=== PATIENT | male | born 1965 | race Caucasian/White ===

== ENCOUNTER 2017-08-10 13:43 | Inpatient (IN) | payer OTHER ==
[~2017-08-10] VITALS: Ht 185.4 cm; Wt 84.6 kg
[2017-08-10] MEDS: DEXT 5%-NACL 0.9% 1000 ML INJ 1,000 ML IV SCH (17:05)
[2017-08-10] MEDS ORDERED: NURSING INFORMATION XX SCH (17:15)
[2017-08-10] MEDS ORDERED: POTASSIUM CHLOR 40 MEQ PREMIX 100 ML IV PRN ×2 (17:15)
[2017-08-10] MEDS ORDERED: INSULIN REGULAR (IV INFUSION) 100 UNITS in SODIUM CHLORIDE 0.9% INJ 99 ML IV PRN (17:15)
[2017-08-10] MEDS ORDERED: POTASSIUM CHLOR 20 MEQ PREMIX 100 ML IV PRN ×5 (17:15)
[2017-08-10] MEDS ORDERED: SODIUM PHOSPHATE INJ 15 MMOL in SODIUM CHLORIDE 0.9% INJ 100 ML IV PRN (17:15)
[2017-08-10] MEDS ORDERED: SODIUM BICARBONATE 8.4% SOLN 50 MEQ/50 ML VIAL IV PUSH PRN ×2 (17:15)
[2017-08-10] MEDS ORDERED: CHLORHEXIDINE GLUCONATE 2 % 1 PACK (2 CLOTHS) TOP PRN (17:15)
[2017-08-10] MEDS ORDERED: LISI10TA3 PO (17:27)
[2017-08-10] MEDS ORDERED: CARV6.252 PO (17:27)
[2017-08-10] MEDS ORDERED: FAMO20TA2 PO (17:27)
[2017-08-10] MEDS ORDERED: VITA1000 PO (17:27)
[2017-08-10] MEDS ORDERED: AMLO10TA2 PO (17:27)
[2017-08-10] MEDS ORDERED: NEPHTAB3 PO (17:27)
[2017-08-10] MEDS ORDERED: hydrALAZINE HCL 20 MG/ML VIAL IV PUSH PRN (18:00)
[2017-08-10] MEDS ORDERED: hydrALAZINE HCL 20 MG/ML VIAL ONE (18:07)
--- NOTE | 2017-08-10 18:47 | HHI.HP ---
HPI Service Critical Care Medicine Primary Care Physician [facility] Admission Diagnosis DKA, Hyperosmolar state Diagnosis: Chief Complaint: Nausea, vomiting Travel History International Travel<30 Days: No Contact w/Intl Traveler <30 Da: No Traveled to Known Affected Are: No History of Present Illness 52-year-old male with a medical history significant for type 1 diabetes mellitus on insulin pump for about 20 years who developed nausea vomiting about 2 weeks back with extremely poor p.o. intake. He usually uses insulin pump about 50 units a day which he continued to use. He was brought to the ER at [facility] in the morning of 08/10. On evaluation in the ER he was noted to have glucose levels in the 1400 range. He is on peritoneal dialysis for end-stage renal disease for the last 2 years. Patient was initially admitted to [facility] however in view of no availability of peritoneal dialysis he was transferred to [facility] after being accepted by critical care medicine service. Patient had been started on insulin drip at [facility] and received 2 L normal saline bolus. Of note his sodium was 113 however this is probably pseudohyponatremia from extreme hyperglycemia is corrected sodium is 145. I evaluated the patient following his arrival. He was resting in bed comfortably not in any acute distress. He was on an insulin drip at 8 units an hour. History is obtained by reviewing records and discussion with patient as well as his family. He denies any chest pain. He does have chronic diarrhea. Denies any fevers chills or rash. He is legally blind. Review of Systems ROS per HPI Past Family Social History Allergies: Coded Allergies: No Known Allergies (Unverified , 08/10/17) Past Medical History Diabetes mellitus type 1 on insulin pump, hypertension, hyperlipidemia, end- stage renal disease on peritoneal dialysis Past Surgical History To amputation, skin grafts on bilateral feet. Reported Medications Amlodipine 10 mg p.o. nightly, Coreg 6.25 mg p.o. twice daily, vitamin D3 1000 units p.o. daily, Pepcid 20 mg p.o. daily, Nephro-Samuel tablet p.o. daily, insulin pump, lisinopril 10 mg p.o. twice daily, Renvela 3200 mg p.o. before meals Family History Noncontributory at this time Social History No history of alcohol abuse on any other drug abuse. Physical Exam Physical Exam HEENT/Neuro: No pallor or icterus, tongue moist, Awake alert oriented 3, nonfocal grossly, moving all 4 extremities Neck: No JVD Chest/pulmonary: CTA bilaterally Cardiovascular: S1-S2 regular no gallop or murmur GI/abdomen: Soft, nontender, bowel sounds present. PD catheter in place Extremities: Warm bilaterally, no edema Laboratory White count 9.1, hemoglobin 10, hematocrit 29.6, platelets 262, sodium 113, potassium 3.3, chloride 71, bicarb 18, BUN 44, creatinine 11.35, ABG pH 7.33, PCO2 36.1, PO2 91. Lactate 1.57 AST 23, ALT 17, alk phos 116, total protein 5.9, albumin 3.3, lipase 21, calcium 8.3, osmolality 298, bilirubin 0.3 Imaging Chest x-ray done at outside hospital reported as left basilar atelectasis with mild elevation of left hemidiaphragm. Caprini VTE Risk Assessment Caprini VTE Risk Assessment: Mod/High Risk (score >= 2) Caprini Risk Assessment Model Point Value = 1 Point Value = 2 Point Value = 3 Point Value = 5 Age 41-60 Minor surgery BMI > 25 kg/m2 Swollen legs Varicose veins or History of unexplained or recurrent spontaneous Oral contraceptives or hormone replacement Sepsis (< 1 month) Serious lung disease, including pneumonia (< 1 month) Abnormal pulmonary function Acute myocardial infarction Congestive heart failure (< 1 month) History of inflammatory bowel disease Medical patient at bed rest Age 61-74 Arthroscopic surgery Major open surgery (> 45 min) Laparoscopic surgery (> 45 min) Malignancy Confined to bed (> 72 hours) Immobilizing plaster cast Central venous access Age >= 75 History of VTE Family history of VTE Factor V Leiden Prothrombin [id number] Lupus anticoagulant Anticardiolipin antibodies Elevated serum homocysteine Heparin-induced thrombocytopenia Other congenital or acquired thrombophilia Stroke (< 1 month) Elective arthroplasty Hip, pelvis, or leg fracture Acute spinal cord injury (< 1 month) Prophylaxis Regimen Total Risk Factor Score Risk Level Prophylaxis Regimen 0-1 Low Early ambulation 2 Moderate Order ONE of the following: *Sequential Compression Device (SCD) *Heparin 5000 units SQ BID 3-4 Higher Order ONE of the following medications: *Heparin 5000 units SQ TID *Enoxaparin/Lovenox 40 mg SQ daily (WT < 150 kg, CrCl > 30 mL/min) *Enoxaparin/Lovenox 30 mg SQ daily (WT < 150 kg, CrCl > 10-29 mL/min) *Enoxaparin/Lovenox 30 mg SQ BID (WT < 150 kg, CrCl > 30 mL/min) AND/OR *Sequential Compression Device (SCD) 5 or more Highest Order ONE of the following medications: *Heparin 5000 units SQ TID (Preferred with Epidurals) *Enoxaparin/Lovenox 40 mg SQ daily (WT < 150 kg, CrCl > 30 mL/min) *Enoxaparin/Lovenox 30 mg SQ daily (WT < 150 kg, CrCl > 10-29 mL/min) *Enoxaparin/Lovenox 30 mg SQ BID (WT < 150 kg, CrCl > 30 mL/min) AND *Sequential Compression Device (SCD) Assessment and Plan Assessment and Plan 52-year-old male with Diabetic ketoacidosis Hyperosmolar state Nausea vomiting ESRD on peritoneal dialysis Dehydration Plan Neuro: Follow neuro status. Pain medications as needed Cardiovascular: Received 2 L normal saline bolus at [facility]. In view of end-stage renal disease on peritoneal dialysis will hold off on maintenance IV fluids currently. Patient is running hypotensive and will resume p.o. antihypertensives and use hydralazine as needed IV. Pulmonary: Supplemental O2 as needed, bronchodilators as needed GI/liver: Zofran as needed for nausea vomiting. Will add Protonix for suspected gastritis Renal/: Consult nephrology and discussed case with Dr. Alamo. Arranging peritoneal dialysis. Monitor and replete electrolytes, follow BUN/creatinine. ID: No indication for antibiotics at this time. Heme: Follow CBC. Endocrine insulin drip per DKA protocol. Prophylaxis SCDs/heparin for DVT prophylaxis, PPI for GI prophylaxis. Condition critical Time spent on critical care excluding procedures 45 minutes. Extensively discussed current clinical status and plan of care with patient as well as his family and they voiced understanding and was agreeable with plan of care. Adan Cuevas MD Aug 10, 2017 18:47
[2017-08-10 18:48] LABS: ALBUMIN 2.6 GM/DL (3.4-5.0); AST (GOT) 25 U/L (15-37); BICARBONATE 20.4 MEQ/L (21.0-32.0); BLOOD UREA NITROGEN 44 MG/DL (7-18); CALCIUM 8.2 MG/DL (8.5-10.1); CHLORIDE 82 MEQ/L (98-107); GLOMERULAR FILTRATION RATE 4 ML/MIN (>89); MAGNESIUM 2.2 MG/DL (1.5-2.5)
[2017-08-10 18:50] LABS: ALT (GPT) 22 U/L (12-78); PHOSPHORUS 3.8 MG/DL (2.5-4.9); TOTAL BILIRUBIN ADULT 0.3 MG/DL (0.2-1.0); TOTAL PROTEIN 5.5 GM/DL (6.4-8.2)
[2017-08-10 18:53] LABS: CREATININE 12.75 MG/DL (0.60-1.30); GLUCOSE,RANDOM 926 MG/DL (74-106); SODIUM (NA) 120 MEQ/L (136-145)
[2017-08-10] MEDS: INSULIN REGULAR (IV INFUSION) 100 UNITS in SODIUM CHLORIDE 0.9% INJ 99 ML IV PRN ×2 (18:54→20:26)
[2017-08-10 18:57] VITALS: PULSE 77
[2017-08-10 19:05] LABS: ALKALINE PHOSPHATASE 105 U/L (45-117)
[2017-08-10 20:00] VITALS: PULSE 75
[2017-08-10] MEDS ORDERED: PILL SPLITTER OTHER PRN (20:00)
[2017-08-10] MEDS: PANTOPRAZOLE SODIUM 40 MG VIAL IV PUSH SCH (20:24)
[2017-08-10] MEDS: LISINOPRIL 10 MG TAB PO SCH (20:25)
[2017-08-10] MEDS: SODIUM CHLOR 0.9% 1000 ML INJ 1,000 ML IV SCH (20:25)
[2017-08-10] MEDS: CARVEDILOL 6.25 MG TAB PO SCH (20:25)
[2017-08-10] MEDS: PROMETHAZINE HCL 25 MG TAB PO PRN (20:25)
[2017-08-10] MEDS: POTASSIUM CHLOR 20 MEQ PREMIX 100 ML IV PRN (21:28)
[2017-08-10 22:00] VITALS: PULSE 63
[2017-08-10 22:32] LABS: BICARBONATE 22.6 MEQ/L (21.0-32.0); CALCIUM 7.7 MG/DL (8.5-10.1); MAGNESIUM 2.1 MG/DL (1.5-2.5); PHOSPHORUS 3.7 MG/DL (2.5-4.9)
[2017-08-10 22:34] LABS: CREATININE 12.33 MG/DL (0.60-1.30)
[2017-08-11] VITALS (14 sets, daily range): BP systolic 150; BP diastolic 85; PULSE 64–121; RESP 17; TEMP 98; O2SAT 99
[2017-08-11] MEDS: POTASSIUM CHLOR 20 MEQ PREMIX 100 ML IV PRN ×3 (00:59→05:43)
[2017-08-11] MEDS ORDERED: SODIUM CHLOR 0.9% 1000 ML INJ 1,000 ML IV ONE (03:30)
[2017-08-11] MEDS: CHLORHEXIDINE GLUCONATE 2 % 1 PACK (2 CLOTHS) TOP SCH (04:00)
[2017-08-11] MEDS: PROMETHAZINE HCL 25 MG TAB PO PRN (04:33)
[2017-08-11] MEDS: INSULIN REGULAR (IV INFUSION) 100 UNITS in SODIUM CHLORIDE 0.9% INJ 99 ML IV PRN (04:34)
[2017-08-11] MEDS: METOPROLOL TARTRATE 5 MG/5 ML VIAL IV PUSH PRN ×3 (04:50→06:44)
[2017-08-11 04:58] LABS: BICARBONATE 23.3 MEQ/L (21.0-32.0); CALCIUM 7.8 MG/DL (8.5-10.1)
[2017-08-11 05:05] LABS: CREATININE 11.91 MG/DL (0.60-1.30)
[2017-08-11] MEDS: POTASSIUM CHLOR 10 MEQ PREMIX 100 ML IV SCH ×6 (05:45→18:04)
[2017-08-11] MEDS ORDERED: POTASSIUM CHLORIDE 10 MEQ CONTROLLED RELEASE TAB PO ONE (05:45)
[2017-08-11] MEDS: DEXT 5%-NACL 0.9% 1000 ML INJ 1,000 ML IV SCH (06:31)
[2017-08-11] MEDS ORDERED: DC previous DKA orders (HMC 1917) ONE (07:45)
[2017-08-11] MEDS ORDERED: DEXTROSE 50% IN WATER 50 ML VIAL(D50) IV PUSH PRN (07:45)
[2017-08-11] MEDS ORDERED: DC Insulin drip 2 hrs post basal insulin dose ONE (07:45)
[2017-08-11] MEDS ORDERED: GLUCAGON 1 MG/ML VIAL IM/SQ PRN (07:45)
[2017-08-11] MEDS ORDERED: DEXTROSE 50% IN WATER 50 ML VIAL(D50) IV PRN (07:45)
[2017-08-11] MEDS ORDERED: GLUCAGON 1 MG/ML VIAL OTHER PRN (07:45)
[2017-08-11] MEDS: INSULIN ASPART SUPPLEMENTAL SCALE SQ SCH ×4 (08:00→22:26)
[2017-08-11] MEDS: LISINOPRIL 10 MG TAB PO SCH ×2 (08:00→22:19)
[2017-08-11] MEDS: CARVEDILOL 6.25 MG TAB PO SCH ×2 (08:01→22:19)
[2017-08-11] MEDS: INSULIN DETEMIR 100 UNITS/ML VIAL SQ SCH ×2 (08:01→22:26)
[2017-08-11] MEDS: VITAMIN B CMPLX/VITC/FOLIC AC CAP PO SCH (08:01)
[2017-08-11] MEDS: CHOLECALCIFEROL (VIT D3) 1000 UNIT TAB PO SCH (08:01)
[2017-08-11] MEDS: ONDANSETRON ODT 4 MG TAB PO PRN ×2 (09:51→13:03)
[2017-08-11] MEDS ORDERED: SODIUM CHLORIDE 0.9% FLUSH 10 ML FLUSH IV FLUSH PRN (10:45)
[2017-08-11] MEDS ORDERED: HEPARIN SODIUM - IV 10,000 UNITS/10 ML VIAL XX PRN (10:45)
--- NOTE | 2017-08-11 10:56 | PD.CONS ---
[facility] Service Nephrology Consult Requested By Reason for Consult ESRD Primary Care Physician [facility] History of Present Illness This is a 52 year old with history of type 1 DM, ESRD who has been transferred from [facility] for management of DKA. He is on PD. Patient has received insulin drip which continues. He was also on IVF at 200 ml/hour, I have reduced it to 50 ml/hour. He developed nausea and vomiting yesterday and went to local hospital. Has been on dialysis for the past 2 years. He has diabetic retinopathy and neuropathy. Review of Systems Constitutional: COMPLAINS OF: Fatigue, Weight loss Gastrointestinal: COMPLAINS OF: Nausea, Vomiting, DENIES: Abdominal pain, Black stools, Bloody stools, Difficulty Swallowing Musculoskeletal: DENIES: Muscle aches Neurologic: DENIES: Headache Past Family Social History Allergies: Coded Allergies: No Known Allergies (Unverified , 08/10/17) Past Medical History ESRD Hyperlipidemia Anemia DM type 1 Diabetic retinopathy Toe amputation. PD catheter placement. Past Surgical History Toe amputation PD catheter placement. Active Ordered Medications Current Medications Medications (Trade) Dose Ordered Sig/Marcus Route Start Time Stop Time Status [place] [place] [facility] [place] 1 [id number] XX 08/10/17 17:15 08/10/17 17:15 (Chlorhexidine 2% Cloth) 3 pack Taper DAILY@04 TOP 08/11/17 04:00 08/07/18 03:59 (Chlorhexidine 2% Cloth) 3 pack UNSCH PRN TOP 08/10/17 17:15 Insulin Human Regular 100 units/ Sodium Chloride 100 ml @ 8.25 mls/hr TITRATE PRN IV 08/10/17 17:45 08/11/17 11:00 08/11/17 04:34 (Norvasc) 10 mg DAILY PO 08/11/17 09:00 08/11/17 08:01 (Coreg) 6.25 mg BID PO 08/10/17 21:00 08/11/17 08:01 (Vitamin D3) 1,000 units DAILY PO 08/11/17 09:00 08/11/17 08:01 (Prinivil) 10 mg BID PO 08/10/17 21:00 08/11/17 08:00 (Nephrocaps) 1 cap DAILY PO 08/11/17 09:00 08/11/17 08:01 (Apresoline Inj) 10 mg Q2HR PRN IV PUSH 08/10/17 18:00 (Protonix Inj) 40 mg Q24H IV PUSH 08/10/17 19:00 08/10/17 20:24 (Phenergan) 12.5 mg Q6H PRN PO 08/10/17 20:00 08/11/17 04:33 (Pill Splitter) 1 ea UNSCH PRN OTHER 08/10/17 20:00 Sodium Chloride 1,000 ml @ 42 mls/hr [id number] IV 08/10/17 20:15 08/10/17 20:25 (Lopressor Inj) 5 mg Q5M PRN IV PUSH 08/11/17 04:45 08/11/17 06:44 (Levemir Inj) 10 units Q12HR SQ 08/11/17 09:00 08/11/17 08:01 (D50w (Vial) Inj) 50 ml UNSCH PRN IV PUSH 08/11/17 07:45 (Glucagon Inj) 1 mg UNSCH PRN OTHER 08/11/17 07:45 (NovoLOG SUPPLEMENTAL SCALE) 1 ACHS AND 3AM SQ 08/11/17 08:00 (Zofran Odt) 4 mg Q6H PRN PO 08/11/17 08:00 08/11/17 09:51 Potassium Chloride 100 ml @ 50 mls/hr Q2H IV 08/11/17 14:30 08/11/17 18:29 Potassium Chloride 100 ml @ 100 mls/hr Q1H IV 08/11/17 09:30 08/11/17 14:29 Family History non contributory, reviewed. Social History Lives with his mother. No Tobacco, ETOH or recreational drugs. Physical Exam Vital Signs Vital Signs Date Time Temp Pulse Resp B/P (MAP) Pulse Ox O2 Delivery O2 Flow Rate FiO2 08/11/17 06:00 118 08/11/17 04:00 121 08/11/17 02:00 67 08/11/17 00:00 65 08/10/17 22:00 63 08/10/17 20:00 75 08/10/17 18:57 77 Physical Exam GENERAL: chronically ill appearing, frail, complains of nausea SKIN: Warm and dry. HEAD: Normocephalic. EYES: No scleral icterus. No injection or drainage. NECK: Supple, trachea midline. No JVD or lymphadenopathy. CARDIOVASCULAR: Regular rate and rhythm without murmurs, gallops, or rubs. RESPIRATORY: Breath sounds equal bilaterally. No accessory muscle use. GASTROINTESTINAL: Abdomen soft, non-tender, nondistended. PD catheter is in place. MUSCULOSKELETAL: No cyanosis, or edema. BACK: Nontender without obvious deformity. No CVA tenderness. Laboratory Laboratory Tests Test 08/10/17 18:20 08/10/17 20:10 08/10/17 21:41 08/10/17 22:49 Blood Urea Nitrogen 44 42 Creatinine 12.75 12.33 Random Glucose 926 825 724 623 Total Protein 5.5 Albumin 2.6 Calcium Level 8.2 7.7 Phosphorus Level 3.8 3.7 Magnesium Level 2.2 2.1 Alkaline Phosphatase 105 Aspartate Amino Transf (AST/SGOT) 25 Alanine Aminotransferase (ALT/SGPT) 22 Total Bilirubin 0.3 Sodium Level 120 126 Potassium Level 2.9 2.6 Chloride Level 82 85 Carbon Dioxide Level 20.4 22.6 Anion Gap 18 18 Estimat Glomerular Filtration Rate 4 4 Test 08/11/17 04:04 08/11/17 10:18 Blood Urea Nitrogen 41 Creatinine 11.91 Random Glucose 251 Calcium Level 7.8 Phosphorus Level 4.0 Magnesium Level 2.0 Sodium Level 131 Potassium Level 2.7 Chloride Level 93 Carbon Dioxide Level 23.3 Anion Gap 15 Estimat Glomerular Filtration Rate 5 Result Diagram: 08/11/17 0404 Assessment and Plan Problem List: (1) End stage renal disease ICD Codes: N18.6 - End stage renal disease Plan: We will continue PD: last night he had 4 cycles of 2liter exchanges, using 1.5% dextrose PD solution. UF was about 890 ml. He will have 5 exchanges today, total duration 10 hours. He also has a last fill , and we will skip last fill for the time being. Monitor fluid and electrolytes. Reduce IVF to 50 ml/hour, discontinue once he starts eating. Avoid Gadolinium. Obtain CBC: not done. Epogen if necessary. (2) Hyperglycemia ICD Codes: R73.9 - Hyperglycemia, unspecified Plan: Possible DKA On insulin drip. Hyperglycemia has improved. He usually uses an insulin pump, there is a chance that it malfunctioned. Transition to SC insulin per protocol. (3) Hyponatremia ICD Codes: E87.1 - Hypo-osmolality and hyponatremia Plan: patient has pseudohyponatremia, but will continue to monitor. Hyponatremia not uncommon in PD patients. (4) Hypokalemia ICD Codes: E87.6 - Hypokalemia Plan: Replace as needed, replacement has been ordered. Assessment and Plan Thanks for the consult. Yovanny Padgett MD Aug 11, 2017 10:56
[2017-08-11 11:05] LABS: BICARBONATE 21.7 MEQ/L (21.0-32.0); CALCIUM 7.6 MG/DL (8.5-10.1); PHOSPHORUS 3.6 MG/DL (2.5-4.9)
[2017-08-11 11:23] LABS: CREATININE 11.96 MG/DL (0.60-1.30)
--- NOTE | 2017-08-11 12:03 | HHI.PR ---
Subjective Remarks Pt seen and examined. Reports feeling a little better. Continues to have some nausea and dry heaves but tolerated breakfast. Denies CP, SOB, diarrhea. Reports he has had current insulin pump for 3 years and has been on a pump total of 25 years. Objective Vital Signs Date Time Temp Pulse Resp B/P (MAP) Pulse Ox O2 Delivery O2 Flow Rate FiO2 08/11/17 06:00 118 08/11/17 04:00 121 08/11/17 02:00 67 08/11/17 00:00 65 08/10/17 22:00 63 08/10/17 20:00 75 08/10/17 18:57 77 I/O 08/10/17 08/10/17 08/10/17 08/11/17 08/11/17 08/11/17 07:00 15:00 23:00 07:00 15:00 23:00 Intake Total 100 ml 2874 ml 450 ml Output Total 864 ml Balance 100 ml 2874 ml -414 ml Intake Oral 0 ml IV Total 100 ml 2874 ml 450 ml Output Peritoneal Fluid 864 ml # Voids 0 0 # Bowel Movements 0 0 Result Diagram: 08/11/17 1018 Objective Remarks GENERAL: WN, WD male resting in bed in [facility]. SKIN: Warm and dry. Pale. HEENT: AT/NC. Pupils equal and round. MMM. NECK: Supple no tender LAD or JVD. HEART: RRR no m/r/g. LUNGS: CTAB without wheezes or crackles. ABDOMEN: +BS, soft, NT, ND. EXTREMITIES: No LE edema. 2+ pedal pulses. NEURO: Awake and alert. Blind. PSYCH: Appropriate mood and affect. A/P Problem List: (1) Diabetic keto-acidosis ICD Code: E13.10 - Other specified diabetes mellitus with ketoacidosis without coma (2) End stage renal disease ICD Code: N18.6 - End stage renal disease (3) Hypokalemia ICD Code: E87.6 - Hypokalemia Assessment and Plan 52 YOWM with history of ESRD on peritoneal dialysis, type 1 DM, HTN, and HLD admitted 08/10 from [facility] with DKA. He was initially admitted to the virtual recruiter service but care has been transitioned to the hospitalist service. 1. DKA - Initial blood glucose 926 with potassium 2.9, AG 18, and sodium 120 (largely pseudohyponatremia from severe hyperglycemia) - Beta hydroxybutyrate not done - Initially on insulin drip and has since transitioned to subcutaneous insulin and started on a diet - Levemir 10 units BID - Potassium replacement per protocol - Holding off on IV fluids given ESRD - Check A1c - Consult case management to see if pump can be assessed for malfunction - Antiemetics 2. ESRD on PD - Nephrology consulted to arrange PD - Monitor renal function - Avoid nephrotoxic agents 3. HTN - Continue home amlodipine and carvedilol 4. Type 1 DM complicated by retinopathy and neuropathy - See plans above GI prophylaxis: PPI DVT prophylaxis: Heparin Lola Alcocer MD Aug 11, 2017 12:03
[2017-08-11 12:22] LABS: AUTOMATED NEUTROPHIL # 9.6 TH/MM3 (1.8-7.7); BASOPHIL % 0.3 % (0.0-2.0); EOSINOPHIL # 0.2 TH/MM3 (0-0.4); EOSINOPHIL % 1.4 % (0.0-4.0); HEMATOCRIT 29.5 % (39.0-51.0); HEMOGLOBIN 10.3 GM/DL (13.0-17.0); MEAN CELL VOLUME 85.4 FL (80.0-100.0); MEAN CORPUSCULAR HEMOGLOBIN 29.9 PG (27.0-34.0); MONO % 4.7 % (0.0-8.0); MONOCYTE # 0.5 TH/MM3 (0-0.9); NEUT % 84.6 % (16.0-70.0); PLATELET COUNT 366 TH/MM3 (150-450); RED BLOOD COUNT 3.46 MIL/MM3 (4.50-5.90); RED CELL DISTRIBUTION WIDTH 14.9 % (11.6-17.2); WHITE BLOOD COUNT 11.4 TH/MM3 (4.0-11.0)
[2017-08-11] MEDS: POTASSIUM CHLOR 20 MEQ PREMIX 100 ML IV SCH (14:30)
[2017-08-11 18:00] LABS: BICARBONATE 21.3 MEQ/L (21.0-32.0); CALCIUM 7.8 MG/DL (8.5-10.1)
[2017-08-11 18:01] LABS: PHOSPHORUS 3.3 MG/DL (2.5-4.9)
[2017-08-11 18:08] LABS: CREATININE 12.16 MG/DL (0.60-1.30)
[2017-08-11] MEDS ORDERED: POTASSIUM CHLORIDE 25 MEQ EFFERVESCENT TAB PO ONE (18:45)
--- NOTE | 2017-08-11 20:40 | RADRPT ---
EXAM DATE: 08/11/2017 8:37 PM EDT AGE/SEX: 52 years / Male INDICATIONS: Shortness of breath. CLINICAL DATA: This is the patient's initial encounter. Patient reports that signs and symptoms have been present for 1 day and indicates a pain score of 0/10. MEDICAL/SURGICAL HISTORY: Hypertension. Gastroesophageal reflux disease. Diabetes mellitus ty pe II. None. COMPARISON: No prior [place] exams available for comparison. FINDINGS: Bibasilar atelectasis and/or infiltrates are noted. The heart is normal. The pulmonary vascular patte rn is normal. There is elevation of the left hemidiaphragm. CONCLUSION: 1. Bibasilar atelectasis and/or infiltrates. 2. Elevation of the left hemidiaphragm. Electronically signed by: Kobi Staton MD 08/11/2017 8:39 PM EDT
[2017-08-11] MEDS: PANTOPRAZOLE SODIUM 40 MG VIAL IV PUSH SCH (22:30)
[2017-08-11] MEDS: SODIUM CHLOR 0.9% 1000 ML INJ 1,000 ML IV SCH (22:32)
[2017-08-12 00:20] VITALS: BP 139/80; PULSE 60; RESP 19; TEMP 97; O2SAT 100
[2017-08-12] MEDS: INSULIN ASPART SUPPLEMENTAL SCALE SQ SCH ×5 (03:34→21:00)
[2017-08-12] MEDS: POTASSIUM CHLOR 20 MEQ PREMIX 100 ML IV SCH (04:18)
[2017-08-12] MEDS: POTASSIUM CHLOR 10 MEQ PREMIX 100 ML IV SCH ×3 (04:18→04:19)
[2017-08-12] MEDS: CHLORHEXIDINE GLUCONATE 2 % 1 PACK (2 CLOTHS) TOP SCH ×2 (04:19→21:32)
[2017-08-12 05:45] VITALS: BP 129/69; PULSE 64; RESP 19; TEMP 98; O2SAT 100
[2017-08-12 08:00] VITALS: BP 157/85; PULSE 77; RESP 16; TEMP 98.5; O2SAT 98
[2017-08-12 08:13] LABS: AUTOMATED NEUTROPHIL # 6.5 TH/MM3 (1.8-7.7); BASOPHIL % 0.4 % (0.0-2.0); EOSINOPHIL # 0.2 TH/MM3 (0-0.4); EOSINOPHIL % 2.2 % (0.0-4.0); HEMATOCRIT 29.5 % (39.0-51.0); HEMOGLOBIN 10.4 GM/DL (13.0-17.0); LYMPH % 11.6 % (9.0-44.0); MEAN CELL VOLUME 87.4 FL (80.0-100.0); MEAN CORPUSCULAR HEMOGLOBIN 30.9 PG (27.0-34.0); MEAN CORPUSCULAR HGB CONC 35.4 % (32.0-36.0); MONO % 7.8 % (0.0-8.0); MONOCYTE # 0.7 TH/MM3 (0-0.9); PLATELET COUNT 315 TH/MM3 (150-450); RED BLOOD COUNT 3.38 MIL/MM3 (4.50-5.90); RED CELL DISTRIBUTION WIDTH 14.9 % (11.6-17.2); WHITE BLOOD COUNT 8.4 TH/MM3 (4.0-11.0)
[2017-08-12 08:36] LABS: BICARBONATE 22.3 MEQ/L (21.0-32.0); CALCIUM 7.7 MG/DL (8.5-10.1); MAGNESIUM 1.9 MG/DL (1.5-2.5)
[2017-08-12 08:47] LABS: CREATININE 12.29 MG/DL (0.60-1.30)
[2017-08-12] MEDS: VITAMIN B CMPLX/VITC/FOLIC AC CAP PO SCH (09:00)
[2017-08-12] MEDS ORDERED: POTASSIUM CHLORIDE 10 MEQ CONTROLLED RELEASE TAB PO ONE ×2 (09:00→14:30)
[2017-08-12] MEDS ORDERED: POTASSIUM CHLORIDE 20 MEQ CONTROLLED RELEASE TAB PO ONE (09:00)
[2017-08-12] MEDS: LISINOPRIL 10 MG TAB PO SCH ×2 (09:52→21:33)
[2017-08-12] MEDS: CARVEDILOL 6.25 MG TAB PO SCH ×2 (09:53→21:33)
[2017-08-12] MEDS: CHOLECALCIFEROL (VIT D3) 1000 UNIT TAB PO SCH (09:53)
[2017-08-12] MEDS: INSULIN DETEMIR 100 UNITS/ML VIAL SQ SCH ×2 (09:56→21:34)
[2017-08-12 10:20] LABS: HEMOGLOBIN A1C 12.2 % (4.3-6.0)
--- NOTE | 2017-08-12 10:23 | HHI.NPPN ---
Subjective Interval History continues to complain of nausea. Oral intake is marginal, but was able to have some breakfast this morning. Review of Systems General Constitutional: Fatigue Gastrointestinal Gastrointestinal: Nausea & Vomiting Objective Data Data 08/12/17 08/13/17 19:00 07:00 Output Total 1383 ml Balance -1383 ml Peritoneal Fluid 1383 ml Vital Signs Date Time Temp Pulse Resp B/P (MAP) Pulse Ox O2 Delivery O2 Flow Rate FiO2 08/12/17 08:00 98.5 77 16 157/85 (109) 98 08/12/17 05:45 98.0 64 19 129/69 (89) 100 08/12/17 00:20 97.0 60 19 139/80 (99) 100 08/11/17 21:00 98.0 77 17 150/85 (106) 99 08/11/17 18:00 71 08/11/17 17:00 68 08/11/17 16:00 75 08/11/17 15:00 67 08/11/17 14:00 77 08/11/17 13:00 69 08/11/17 12:00 64 -: 08/12/17 0710 08/12/17 0710 Physical Exam General Appearance: Well Developed, Malnourished Eyes Eye Exam: Pupils Equal, Pupils Reactive Throat Throat Exam: Oral Mucosa [place] & Moist Neck Neck Exam: Neck Supple Pulmonary Resp Exam: Clear Bilaterally, Breath Sounds Equal Cardiology CV Exam: Regular, Normal Sinus Rhythm Gastrointestinal/Abdomen GI Exam: Soft, Non-Tender, Bowel Sounds Present GI Remarks PD catheter is in place. Extremeties Extremities Exam: No Edema Neurologic Neuro Exam: Alert, Awake, Oriented, Speech Clear, Moving All Extremities Assessment/Plan Problem List: (1) End stage renal disease ICD Codes: N18.6 - End stage renal disease Plan: We will continue PD. Monitor fluid and electrolytes. Discontinue IVF. Avoid Gadolinium. One dose of Epogen today: has anemia of CKD. (2) Hyperglycemia ICD Codes: R73.9 - Hyperglycemia, unspecified Plan: Hyperglycemia has improved. Off of insulin drip. Continue insulin coverage. He used insulin pump at home. His mother may bring the pump from home. He is from [facility]. (3) Hyponatremia ICD Codes: E87.1 - Hypo-osmolality and hyponatremia Plan: patient has pseudohyponatremia, but will continue to monitor. Hyponatremia not uncommon in PD patients. (4) Hypokalemia ICD Codes: E87.6 - Hypokalemia Plan: Replace as needed, replacement has been ordered. Yovanny Padgett MD Aug 12, 2017 10:23
[2017-08-12] MEDS: SODIUM CHLOR 0.9% 1000 ML INJ 1,000 ML IV SCH ×2 (11:30→22:41)
--- NOTE | 2017-08-12 11:35 | HHI.PR ---
Subjective Remarks Nausea is present today. Blood sugars are better controlled. Patient has poor p.o. intake thus far. Potassium levels are low. Objective Vital Signs Date Time Temp Pulse Resp B/P (MAP) Pulse Ox O2 Delivery O2 Flow Rate FiO2 08/12/17 08:00 98.5 77 16 157/85 (109) 98 08/12/17 05:45 98.0 64 19 129/69 (89) 100 08/12/17 00:20 97.0 60 19 139/80 (99) 100 08/11/17 21:00 98.0 77 17 150/85 (106) 99 08/11/17 18:00 71 08/11/17 17:00 68 08/11/17 16:00 75 08/11/17 15:00 67 08/11/17 14:00 77 08/11/17 13:00 69 08/11/17 12:00 64 I/O 08/11/17 08/11/17 08/11/17 08/12/17 08/12/17 08/12/17 06:59 14:59 22:59 06:59 14:59 22:59 Intake Total 2974 ml 550 ml 100 ml 300 ml Output Total 864 ml 0 ml 0 ml 1383 ml Balance 2974 ml -314 ml 100 ml 300 ml -1383 ml Intake Oral 100 ml 300 ml IV Total 2974 ml 550 ml Output Urine Total 0 ml 0 ml Peritoneal Fluid 864 ml 1383 ml # Voids 0 # Bowel Movements 0 1 1 1 Result Diagram: 08/12/17 0710 08/12/17 0710 Objective Remarks GENERAL: NAD, A&Ox3 HEAD: Normocephalic. NECK: Supple, trachea midline. No lymphadenopathy. EYES: No scleral icterus. No injection or drainage. CARDIOVASCULAR: Regular rate and rhythm without murmurs, gallops, or rubs. RESPIRATORY: Breath sounds equal bilaterally. No accessory muscle use. GASTROINTESTINAL: Abdomen soft, non-tender, nondistended. MUSCULOSKELETAL: No cyanosis, or edema. SKIN: Warm and dry. NEURO: No focal neurological deficitis. A/P Problem List: (1) Diabetic keto-acidosis ICD Code: E13.10 - Other specified diabetes mellitus with ketoacidosis without coma (2) Hyponatremia ICD Code: E87.1 - Hypo-osmolality and hyponatremia (3) Hyperglycemia ICD Code: R73.9 - Hyperglycemia, unspecified (4) End stage renal disease ICD Code: N18.6 - End stage renal disease (5) Hypokalemia ICD Code: E87.6 - Hypokalemia Assessment and Plan 52-year-old male admitted secondary to acute DKA DKA Type 1 diabetes Resolved Previous episode greater than 1 year ago Continue to correct electrolytes Continue Levemir 10 units twice daily Diabetic diet Nausea Related to DKA Improving Continue Zofran Consider discharge when this is improved Hypokalemia Replace as needed and monitor Consider discharge once this stabilizes End-stage renal disease Continue peritoneal dialysis Follow renal function Nephrology following Hypertension Continue baseline treatment Follow blood pressures Adjust treatments as needed Deniz Jasmine MD Aug 12, 2017 11:35
[2017-08-12 12:00] VITALS: BP 130/83; PULSE 74; RESP 18; TEMP 98.2; O2SAT 98
[2017-08-12] MEDS ORDERED: EPOETIN ALFA 20,000 UNITS/ML VIAL SQ ONE (12:00)
[2017-08-12 15:30] VITALS: BP 141/91; PULSE 78; RESP 18; TEMP 98.4; O2SAT 99
[2017-08-12] MEDS: PANTOPRAZOLE SODIUM 40 MG VIAL IV PUSH SCH (18:25)
[2017-08-12 20:30] VITALS: BP 164/97; PULSE 81; RESP 20; TEMP 99.1; O2SAT 98
[2017-08-13] VITALS: BP 143/88; PULSE 72; RESP 18; TEMP 98.3; O2SAT 98
[2017-08-13] MEDS: INSULIN ASPART SUPPLEMENTAL SCALE SQ SCH ×5 (03:31→21:12)
[2017-08-13 04:00] VITALS: BP 136/81; PULSE 74; RESP 20; TEMP 98.6; O2SAT 99
[2017-08-13 07:50] VITALS: BP 162/95; PULSE 74; RESP 18; TEMP 98; O2SAT 98
[2017-08-13] MEDS: CARVEDILOL 6.25 MG TAB PO SCH ×2 (08:40→20:47)
[2017-08-13] MEDS: VITAMIN B CMPLX/VITC/FOLIC AC CAP PO SCH (08:41)
[2017-08-13] MEDS: LISINOPRIL 10 MG TAB PO SCH ×2 (08:41→20:47)
[2017-08-13] MEDS: CHOLECALCIFEROL (VIT D3) 1000 UNIT TAB PO SCH (08:42)
[2017-08-13] MEDS: INSULIN DETEMIR 100 UNITS/ML VIAL SQ SCH ×2 (09:00→21:13)
--- NOTE | 2017-08-13 09:36 | HHI.NPPN ---
Subjective Interval History patient was seen and examined. He is doing well. Nausea, and vomiting. Review of Systems General Constitutional: Fatigue Gastrointestinal Gastrointestinal: Nausea & Vomiting Objective Data Data 08/13/17 08/14/17 19:00 07:00 Output Total 1369 ml Balance -1369 ml Peritoneal Fluid 1369 ml Vital Signs Date Time Temp Pulse Resp B/P (MAP) Pulse Ox O2 Delivery O2 Flow Rate FiO2 08/13/17 07:50 98.0 74 18 162/95 (117) 98 08/13/17 04:00 98.6 74 20 136/81 (99) 99 08/13/17 00:00 98.3 72 18 143/88 (106) 98 08/12/17 20:30 99.1 81 20 164/97 (119) 98 08/12/17 15:30 98.4 78 18 141/91 (108) 99 08/12/17 12:00 98.2 74 18 130/83 (99) 98 -: 08/12/17 0710 08/12/17 1222 Physical Exam General Appearance: Well Developed, Malnourished Eyes Eye Exam: Pupils Equal, Pupils Reactive Throat Throat Exam: Oral Mucosa [place] & Moist Neck Neck Exam: Neck Supple Pulmonary Resp Exam: Clear Bilaterally, Breath Sounds Equal Cardiology CV Exam: Regular, Normal Sinus Rhythm Gastrointestinal/Abdomen GI Exam: Soft, Non-Tender, Bowel Sounds Present GI Remarks PD catheter is in place. Extremeties Extremities Exam: No Edema Neurologic Neuro Exam: Alert, Awake, Oriented, Speech Clear, Moving All Extremities Assessment/Plan Problem List: (1) End stage renal disease ICD Codes: N18.6 - End stage renal disease Plan: We will continue PD. Monitor fluid and electrolytes. No need for IVF. Avoid Gadolinium. Epogen given on 08/12/17. (2) Hyperglycemia ICD Codes: R73.9 - Hyperglycemia, unspecified Plan: Hyperglycemia has improved. Off of insulin drip. Continue insulin coverage. He used insulin pump at home. His mother may bring the pump from home. He is from [facility]. (3) Hyponatremia ICD Codes: E87.1 - Hypo-osmolality and hyponatremia Plan: patient has pseudohyponatremia, but will continue to monitor. Hyponatremia not uncommon in PD patients. (4) Hypokalemia ICD Codes: E87.6 - Hypokalemia Plan: Replace as needed, replacement has been ordered. Plan patient can be discharged from renal standpoint. Yovanny Padgett MD Aug 13, 2017 09:35
[2017-08-13] MEDS ORDERED: POTASSIUM CHLORIDE 10 MEQ CONTROLLED RELEASE TAB PO ONE (09:45)
--- NOTE | 2017-08-13 10:35 | HHI.PR ---
Subjective Remarks in no acute distress. complaining of on and off dysphagia. blood sugar trend noted; says that felt dizzy when his blood sugar was low this morning. Objective Vitals Vital Signs Date Time Temp Pulse Resp B/P (MAP) Pulse Ox O2 Delivery O2 Flow Rate FiO2 08/13/17 07:50 98.0 74 18 162/95 (117) 98 08/13/17 04:00 98.6 74 20 136/81 (99) 99 08/13/17 00:00 98.3 72 18 143/88 (106) 98 08/12/17 20:30 99.1 81 20 164/97 (119) 98 08/12/17 15:30 98.4 78 18 141/91 (108) 99 08/12/17 12:00 98.2 74 18 130/83 (99) 98 I/O 08/12/17 08/12/17 08/12/17 08/13/17 08/13/17 08/13/17 07:00 15:00 23:00 07:00 15:00 23:00 Intake Total 300 ml 380 ml Output Total 0 ml 1383 ml 1369 ml Balance 300 ml -1383 ml 380 ml -1369 ml Intake Oral 300 ml 380 ml Output Urine Total 0 ml Peritoneal Fluid 1383 ml 1369 ml # Voids 3 # Bowel Movements 1 1 0 Result Diagram: 08/12/17 0710 08/12/17 1222 Imaging Last Impressions Chest X-Ray 08/11/17 0000 Signed Impressions: CONCLUSION: 1. Bibasilar atelectasis and/or infiltrates. 2. Elevation of the left hemidiaphragm. Objective Remarks GENERAL: This is a well-nourished, well-developed patient, in no apparent distress. CARDIOVASCULAR: Regular rate and regular rhythm without murmurs, gallops, or rubs. RESPIRATORY: Clear to auscultation. Breath sounds equal bilaterally. No wheezes , rales, or rhonchi. GASTROINTESTINAL: Abdomen soft, non-tender, nondistended. Normal, active bowel sounds MUSCULOSKELETAL: Extremities without clubbing, cyanosis, or edema. NEURO: Alert & Oriented x4 to person, place, time, situation. Moves all ext x4 Medications and IVs Inpatient Medications Amlodipine Besylate (Norvasc) 10 mg DAILY PO Last administered on 08/13/17at 08: 42; Start 08/11/17 at 09:00 Carvedilol (Coreg) 6.25 mg BID PO Last administered on 08/13/17at 08:40; Start at 21:00 Chlorhexidine Gluconate (Chlorhexidine 2% Cloth) 3 pack UNSCH PRN TOP HYGIENIC CARE; Start 08/10/17 at 17:15 Cholecalciferol (Vitamin D3) 1,000 units DAILY PO Last administered on at 08:42; Start 08/11/17 at 09:00 Dextrose (D50w (Vial) Inj) 50 ml UNSCH PRN IV PUSH HYPOGLYCEMIA-SEE COMMENTS; Start 08/11/17 at 07:45 Dextrose/Sodium Chloride 1,000 ml @ 200 mls/hr Q5H IV Last administered on 08/11at 06:31; Start 08/10/17 at 17:05; Stop 08/11/17 at 07:53; Status DC Epoetin David (Epogen Inj) 20,000 units ONCE ONCE SQ Last administered on at 15:38; Start 08/12/17 at 12:00; Stop 08/12/17 at 12:01; Status DC Glucagon (Glucagon Inj) 1 mg UNSCH PRN OTHER HYPOGLYCEMIA-SEE COMMENTS; Start 08/11/17 at 07:45 Heparin Sodium (Porcine) (Heparin Inj) 1,000 units WITH DIALYSIS PRN XX SEE LABEL COMMENTS; Start 08/11/17 at 10:45 Hydralazine HCl (Apresoline Inj) 10 mg Q2HR PRN IV PUSH SBP greater than 160mm Hg; Start 08/10/17 at 18:00 Insulin Aspart (NovoLOG SUPPLEMENTAL SCALE) 1 ACHS AND 3AM SQ Last administered on 08/13/17 03:31; Start 08/11/17 at 08:00 Insulin Detemir (Levemir Inj) 10 units Q12HR SQ Last administered on 08/12/17at 21:34; Start 08/11/17 at 09:00 Insulin Human Regular 100 units/ Sodium Chloride 100 ml @ 8.25 mls/hr TITRATE PRN IV Blood Glucose Control Last administered on 08/11/17at 04:34; Start 08/10/17 at 17:45; Stop 08/11/17 at 11:00; Status DC Lisinopril (Prinivil) 10 mg BID PO Last administered on 08/13/17 08:41; Start 08/10/17 at 21:00 Metoprolol Tartrate (Lopressor Inj) 5 mg Q5M PRN IV PUSH HR>100 Last administered on 08/11/17at 06:44; Start 08/11/17 at 04:45 Miscellaneous (Pill Splitter) 1 ea UNSCH PRN OTHER SEE LABEL COMMENTS; Start at 20:00 Miscellaneous Information ([facility] [place] orders) 1 ONCE ONCE .XX Last administered on 08/11/17at 07:45; Start 08/11/17 at 07:45; Stop 08/11/17 at 07:53; Status DC Miscellaneous Information ([facility] DC Insulin 2 hrs post Levemir) 1 ONCE ONCE .XX Last administered on 08/11/17 07:45; Start 08/11/17 at 07:45; Stop 08/11/17 at 07:54; Status DC Miscellaneous Information ([facility] Nursing Information) 1 Q361D XX Last administered on 08/10/17at 17:15; Start 08/10/17 at 17:15 Ondansetron HCl (Zofran Odt) 4 mg Q6H PRN PO NAUSEA OR VOMITING Last administered on 08/11/17 13:03; Start 08/11/17 at 08:00 Pantoprazole Sodium (Protonix Inj) 40 mg Q24H IV PUSH Last administered on at 18:25; Start 08/10/17 at 19:00 Potassium Bicarb/ Potassium Chloride (K-Lyte Cl Eff) 50 meq ONCE ONCE PO Last administered on 08/11/17at 18:57; Start 08/11/17 at 18:45; Stop 08/11/17 at 18: 46; Status DC Potassium Chloride (KCl) 20 meq ONCE ONCE PO Last administered on 08/13/17at 09: 45; Start 08/13/17 at 09:45; Stop 08/13/17 at 09:46; Status DC Promethazine HCl (Phenergan) 12.5 mg Q6H PRN PO nausea Last administered on 08/11 04:33; Start 08/10/17 at 20:00 Sodium Bicarbonate (Sodium Bicarbonate 8.4% Inj) 50 meq UNSCH PRN IV PUSH SEE LABEL COMMENTS; Start 08/10/17 at 17:15; Stop 08/11/17 at 07:53; Status DC Sodium Chloride 1,000 ml @ 75 mls/hr [id number] IV ; Start 08/12/17 at 11:30 Sodium Chloride (NS Flush) 10 ml UNSCH PRN IV FLUSH SEE LABEL COMMENTS; Start 08/11/17 at 10:45 Sodium Phosphate 15 mmol/Sodium Chloride 105 ml @ 25 mls/hr UNSCH PRN IV SEE LABEL COMMENTS; Start 08/10/17 at 17:15; Stop 08/11/17 at 07:53; Status DC Vitamin B Complex/ Vit C/Folic Acid (Nephrocaps) 1 cap DAILY PO Last administered on 08/13/17at 08:41; Start 08/11/17 at 09:00 A/P Assessment and Plan DKA Type 1 diabetes hypoglycemic episode this morning. Resolved Previous episode greater than 1 year ago decrease Levemir to 8 units twice daily Diabetic diet A1c 12.2. using insulin pump; will consult endocrinology. Nausea Related to DKA Improving Continue Zofran Consider discharge when this is improved Hypokalemia Replace as needed and monitor Consider discharge once this stabilizes End-stage renal disease Continue peritoneal dialysis Follow renal function Nephrology following Hypertension Continue baseline treatment Follow blood pressures Adjust treatments as needed Discharge Planning dc home tomorrow if stable. Vickie Kebede MD Aug 13, 2017 10:35
[2017-08-13 11:57] VITALS: BP 144/78; PULSE 78; RESP 18; TEMP 98.2; O2SAT 98
[2017-08-13] MEDS: SODIUM CHLOR 0.9% 1000 ML INJ 1,000 ML IV SCH (13:31)
[2017-08-13 13:39] LABS: AUTOMATED NEUTROPHIL # 4.4 TH/MM3 (1.8-7.7); BASOPHIL % 0.5 % (0.0-2.0); EOSINOPHIL # 0.2 TH/MM3 (0-0.4); EOSINOPHIL % 2.9 % (0.0-4.0); HEMATOCRIT 31.4 % (39.0-51.0); HEMOGLOBIN 10.7 GM/DL (13.0-17.0); LYMPH % 14.2 % (9.0-44.0); LYMPHOCYTE # 0.9 TH/MM3 (1.0-4.8); MEAN CELL VOLUME 88.9 FL (80.0-100.0); MEAN CORPUSCULAR HEMOGLOBIN 30.4 PG (27.0-34.0); MEAN CORPUSCULAR HGB CONC 34.2 % (32.0-36.0); MEAN PLATELET VOLUME 8.4 FL (7.0-11.0); MONO % 9.4 % (0.0-8.0); MONOCYTE # 0.6 TH/MM3 (0-0.9); PLATELET COUNT 309 TH/MM3 (150-450); RED BLOOD COUNT 3.53 MIL/MM3 (4.50-5.90); RED CELL DISTRIBUTION WIDTH 15.1 % (11.6-17.2); WHITE BLOOD COUNT 6.1 TH/MM3 (4.0-11.0)
[2017-08-13 16:31] VITALS: BP 146/86; PULSE 81; RESP 18; TEMP 98.9; O2SAT 100
[2017-08-13] MEDS: PANTOPRAZOLE SODIUM 40 MG VIAL IV PUSH SCH (17:59)
[2017-08-13 20:19] VITALS: BP 156/97; PULSE 85; RESP 18; TEMP 98.2; O2SAT 100
[2017-08-13] MEDS: CHLORHEXIDINE GLUCONATE 2 % 1 PACK (2 CLOTHS) TOP SCH (20:47)
[2017-08-14 00:25] VITALS: BP 122/80; PULSE 82; RESP 18; TEMP 99.2; O2SAT 100
[2017-08-14] MEDS: INSULIN ASPART SUPPLEMENTAL SCALE SQ SCH ×5 (02:21→20:18)
[2017-08-14 05:17] VITALS: BP 138/87; PULSE 77; RESP 18; TEMP 98.6; O2SAT 99
[2017-08-14 07:08] LABS: ALBUMIN 2.1 GM/DL (3.4-5.0); BICARBONATE 21.9 MEQ/L (21.0-32.0); PHOSPHORUS 3.6 MG/DL (2.5-4.9)
[2017-08-14 07:26] LABS: CREATININE 13.18 MG/DL (0.60-1.30)
[2017-08-14 08:03] VITALS: BP 147/86; PULSE 73; RESP 19; TEMP 98.5; O2SAT 98
[2017-08-14] MEDS: CHOLECALCIFEROL (VIT D3) 1000 UNIT TAB PO SCH (08:50)
[2017-08-14] MEDS: CARVEDILOL 6.25 MG TAB PO SCH ×2 (08:51→20:09)
[2017-08-14] MEDS: VITAMIN B CMPLX/VITC/FOLIC AC CAP PO SCH (08:51)
[2017-08-14] MEDS: LISINOPRIL 10 MG TAB PO SCH ×2 (08:52→20:09)
[2017-08-14] MEDS: INSULIN DETEMIR 100 UNITS/ML VIAL SQ SCH (08:52)
--- NOTE | 2017-08-14 08:52 | HHI.NPPN ---
Subjective Interval History No specific complaints. PD went well. No abdominal pain. Tolerating oral intake. Review of Systems General Constitutional: Fatigue Gastrointestinal Gastrointestinal: Nausea & Vomiting Objective Data Data 08/14/17 08/15/17 19:00 07:00 Output Total 1232 ml Balance -1232 ml Peritoneal Fluid 1232 ml Vital Signs Date Time Temp Pulse Resp B/P (MAP) Pulse Ox O2 Delivery O2 Flow Rate FiO2 08/14/17 08:03 98.5 73 19 147/86 (106) 98 08/14/17 05:17 98.6 77 18 138/87 (104) 99 08/14/17 00:25 99.2 82 18 122/80 (94) 100 08/13/17 20:19 98.2 85 18 156/97 (116) 100 08/13/17 16:31 98.9 81 18 146/86 (106) 100 08/13/17 11:57 98.2 78 18 144/78 (100) 98 -: 08/13/17 1225 08/14/17 0515 Physical Exam General Appearance: Well Developed, Malnourished Eyes Eye Exam: Pupils Equal, Pupils Reactive Throat Throat Exam: Oral Mucosa [place] & Moist Neck Neck Exam: Neck Supple Pulmonary Resp Exam: Clear Bilaterally, Breath Sounds Equal Cardiology CV Exam: Regular, Normal Sinus Rhythm Gastrointestinal/Abdomen GI Exam: Soft, Non-Tender, Bowel Sounds Present GI Remarks PD catheter is in place. Extremeties Extremities Exam: No Edema Neurologic Neuro Exam: Alert, Awake, Oriented, Speech Clear, Moving All Extremities Assessment/Plan Problem List: (1) End stage renal disease ICD Codes: N18.6 - End stage renal disease Plan: We will continue PD. Monitor fluid and electrolytes. No need for IVF. Avoid Gadolinium. Epogen given on 08/12/17. (2) Hyperglycemia ICD Codes: R73.9 - Hyperglycemia, unspecified Plan: Hyperglycemia has improved. Off of insulin drip. Continue insulin coverage. He used insulin pump at home. He is requesting if he could talk to an student services dean. He is from [facility]. (3) Hyponatremia ICD Codes: E87.1 - Hypo-osmolality and hyponatremia Plan: patient has pseudohyponatremia, but will continue to monitor. Hyponatremia not uncommon in PD patients. (4) Hypokalemia ICD Codes: E87.6 - Hypokalemia Plan: Initiated daily replacement. Plan patient can be discharged from renal standpoint. Yovanny Padgett MD Aug 14, 2017 08:52
[2017-08-14] MEDS: POTASSIUM CHLORIDE 10 MEQ CAP PO SCH (09:25)
--- NOTE | 2017-08-14 11:22 | HHI.PR ---
Subjective Remarks in no acute distress. had another hypoglycemic episode earlier today and felt dizzy at the time. no other complaints. Objective Vitals Vital Signs Date Time Temp Pulse Resp B/P (MAP) Pulse Ox O2 Delivery O2 Flow Rate FiO2 08/14/17 08:03 98.5 73 19 147/86 (106) 98 08/14/17 05:17 98.6 77 18 138/87 (104) 99 08/14/17 00:25 99.2 82 18 122/80 (94) 100 08/13/17 20:19 98.2 85 18 156/97 (116) 100 08/13/17 16:31 98.9 81 18 146/86 (106) 100 08/13/17 11:57 98.2 78 18 144/78 (100) 98 I/O 08/13/17 08/13/17 08/13/17 08/14/17 08/14/17 08/14/17 07:00 15:00 23:00 07:00 15:00 23:00 Intake Total 380 ml Output Total 1369 ml 1232 ml Balance 380 ml -1369 ml -1232 ml Intake Oral 380 ml Peritoneal Fluid 1369 ml 1232 ml # Voids 3 2 # Bowel Movements 0 1 Result Diagram: 08/13/17 1225 08/14/17 0515 Imaging Last Impressions Chest X-Ray 08/11/17 0000 Signed Impressions: CONCLUSION: 1. Bibasilar atelectasis and/or infiltrates. 2. Elevation of the left hemidiaphragm. Objective Remarks GENERAL: This is a well-nourished, well-developed patient, in no apparent distress. CARDIOVASCULAR: Regular rate and regular rhythm without murmurs, gallops, or rubs. RESPIRATORY: Clear to auscultation. Breath sounds equal bilaterally. No wheezes , rales, or rhonchi. GASTROINTESTINAL: Abdomen soft, non-tender, nondistended. Normal, active bowel sounds MUSCULOSKELETAL: Extremities without clubbing, cyanosis, or edema. NEURO: Alert & Oriented x4 to person, place, time, situation. Moves all ext x4 Medications and IVs Inpatient Medications Amlodipine Besylate (Norvasc) 10 mg DAILY PO Last administered on 08/14/17at 08: 50; Start 08/11/17 at 09:00 Carvedilol (Coreg) 6.25 mg BID PO Last administered on 08/14/17 08:51; Start at 21:00 Chlorhexidine Gluconate (Chlorhexidine 2% Cloth) 3 pack UNSCH PRN TOP HYGIENIC CARE; Start 08/10/17 at 17:15 Cholecalciferol (Vitamin D3) 1,000 units DAILY PO Last administered on at 08:50; Start 08/11/17 at 09:00 Dextrose (D50w (Vial) Inj) 50 ml UNSCH PRN IV PUSH HYPOGLYCEMIA-SEE COMMENTS; Start 08/11/17 at 07:45 Dextrose/Sodium Chloride 1,000 ml @ 200 mls/hr Q5H IV Last administered on 08/11at 06:31; Start 08/10/17 at 17:05; Stop 08/11/17 at 07:53; Status DC Epoetin David (Epogen Inj) 20,000 units ONCE ONCE SQ Last administered on at 15:38; Start 08/12/17 at 12:00; Stop 08/12/17 at 12:01; Status DC Glucagon (Glucagon Inj) 1 mg UNSCH PRN OTHER HYPOGLYCEMIA-SEE COMMENTS; Start 08/11/17 at 07:45 Heparin Sodium (Porcine) (Heparin Inj) 1,000 units WITH DIALYSIS PRN XX SEE LABEL COMMENTS; Start 08/11/17 at 10:45 Hydralazine HCl (Apresoline Inj) 10 mg Q2HR PRN IV PUSH SBP greater than 160mm Hg; Start 08/10/17 at 18:00 Insulin Aspart (NovoLOG SUPPLEMENTAL SCALE) 1 ACHS AND 3AM SQ Last administered on 08/14/17at 02:21; Start 08/11/17 at 08:00 Insulin Detemir (Levemir Inj) 8 units Q12HR SQ Last administered on 08/14/17 08 :52; Start 08/13/17 at 21:00 Insulin Human Regular 100 units/ Sodium Chloride 100 ml @ 8.25 mls/hr TITRATE PRN IV Blood Glucose Control Last administered on 08/11/17at 04:34; Start 08/10/17 at 17:45; Stop 08/11/17 at 11:00; Status DC Lisinopril (Prinivil) 10 mg BID PO Last administered on 08/14/17at 08:52; Start 08/10/17 at 21:00 Metoprolol Tartrate (Lopressor Inj) 5 mg Q5M PRN IV PUSH HR>100 Last administered on 08/11/17at 06:44; Start 08/11/17 at 04:45 Miscellaneous (Pill Splitter) 1 ea UNSCH PRN OTHER SEE LABEL COMMENTS; Start at 20:00 Miscellaneous Information ([facility] DC previous DKA orders) 1 ONCE ONCE .XX Last administered on 08/11/17at 07:45; Start 08/11/17 at 07:45; Stop 08/11/17 at 07:53; Status DC Miscellaneous Information ([facility] [place] Insulin 2 hrs post Levemir) 1 ONCE ONCE .XX Last administered on 08/11/17at 07:45; Start 08/11/17 at 07:45; Stop 08/11/17 at 07:54; Status DC Miscellaneous Information ([facility] [place] Nursing Information) 1 Q361D XX Last administered on 08/10/17at 17:15; Start 08/10/17 at 17:15 Ondansetron HCl (Zofran Odt) 4 mg Q6H PRN PO NAUSEA OR VOMITING Last administered on 08/11/17at 13:03; Start 08/11/17 at 08:00 Pantoprazole Sodium (Protonix Inj) 40 mg Q24H IV PUSH Last administered on at 17:59; Start 08/10/17 at 19:00 Potassium Bicarb/ Potassium Chloride (K-Lyte Cl Eff) 50 meq ONCE ONCE PO Last administered on 08/11/17at 18:57; Start 08/11/17 at 18:45; Stop 08/11/17 at 18: 46; Status DC Potassium Chloride (KCl) 10 meq DAILY PO Last administered on 08/14/17at 09:25; Start 08/14/17 at 09:00 Promethazine HCl (Phenergan) 12.5 mg Q6H PRN PO nausea Last administered on 08/11at 04:33; Start 08/10/17 at 20:00 Sodium Bicarbonate (Sodium Bicarbonate 8.4% Inj) 50 meq UNSCH PRN IV PUSH SEE LABEL COMMENTS; Start 08/10/17 at 17:15; Stop 08/11/17 at 07:53; Status DC Sodium Chloride 1,000 ml @ 75 mls/hr [id number] IV ; Start 08/12/17 at 11:30; Stop 08/13/17 at 13:51; Status DC Sodium Chloride (NS Flush) 10 ml UNSCH PRN IV FLUSH SEE LABEL COMMENTS; Start 08/11/17 at 10:45 Sodium Phosphate 15 mmol/Sodium Chloride 105 ml @ 25 mls/hr UNSCH PRN IV SEE LABEL COMMENTS; Start 08/10/17 at 17:15; Stop 08/11/17 at 07:53; Status DC Vitamin B Complex/ Vit C/Folic Acid (Nephrocaps) 1 cap DAILY PO Last administered on 08/14/17at 08:51; Start 08/11/17 at 09:00 A/P Assessment and Plan DKA Type 1 diabetes recurrent hypoglycemic episode this morning. Resolved change Levemit to 8 units in am and 5 units qhs change the sliding scale to ACHS Diabetic diet A1c 12.2. using insulin pump at home; consulted endocrinology. Nausea Related to DKA Improving Continue Zofran Hypokalemia Replace as needed and monitor End-stage renal disease Continue peritoneal dialysis Follow renal function Nephrology following Hypertension Continue baseline treatment Follow blood pressures Adjust treatments as needed Discharge Planning dc home tomorrow if stable with no recurrent hypoglycemia- awaiting endocrinology evaluation. Vickie Kebede MD Aug 14, 2017 11:22
[2017-08-14] MEDS ORDERED: GLUCAGON 1 MG/ML VIAL OTHER PRN (11:30)
[2017-08-14] MEDS ORDERED: DEXTROSE 50% IN WATER 50 ML VIAL(D50) IV PUSH PRN (11:30)
[2017-08-14 12:36] VITALS: BP 131/79; PULSE 87; RESP 20; TEMP 98.4; O2SAT 95
[2017-08-14 16:15] VITALS: BP 131/81; PULSE 81; RESP 20; TEMP 98.6; O2SAT 99
[2017-08-14] MEDS: PANTOPRAZOLE SODIUM 40 MG VIAL IV PUSH SCH (18:25)
--- NOTE | 2017-08-14 18:27 | HHI.PR ---
Subjective Remarks Chart reviewed. Full consult to follow. Objective Vital Signs Date Time Temp Pulse Resp B/P (MAP) Pulse Ox O2 Delivery O2 Flow Rate FiO2 08/14/17 16:15 98.6 81 20 131/81 (98) 99 08/14/17 12:36 98.4 87 20 131/79 (96) 95 08/14/17 08:03 98.5 73 19 147/86 (106) 98 08/14/17 05:17 98.6 77 18 138/87 (104) 99 08/14/17 00:25 99.2 82 18 122/80 (94) 100 08/13/17 20:19 98.2 85 18 156/97 (116) 100 I/O 08/13/17 08/13/17 08/13/17 08/14/17 08/14/17 08/14/17 07:00 15:00 23:00 07:00 15:00 23:00 Intake Total 380 ml 720 ml Output Total 1369 ml 1232 ml Balance 380 ml -1369 ml -1232 ml 720 ml Intake Oral 380 ml 720 ml Peritoneal Fluid 1369 ml 1232 ml # Voids 3 2 3 # Bowel Movements 0 1 Result Diagram: 08/13/17 1225 08/14/17 0515 Assessment and Plan Assessment and Plan Uncontrolled Diabetes Chart reviewed. Full consult to follow shortly. Deon Reyes MD Aug 14, 2017 18:27
[2017-08-14] MEDS: CHLORHEXIDINE GLUCONATE 2 % 1 PACK (2 CLOTHS) TOP SCH (20:09)
[2017-08-14 20:16] VITALS: BP 162/97; PULSE 82; RESP 20; TEMP 99; O2SAT 99
[2017-08-14] MEDS ORDERED: INSULIN DETEMIR 100 UNITS/ML VIAL SQ SCH (21:00)
[2017-08-15 01:31] VITALS: BP 129/79; PULSE 82; RESP 20; TEMP 99.2; O2SAT 98
[2017-08-15 04:38] VITALS: BP 164/98; PULSE 79; RESP 20; TEMP 97.6; O2SAT 96
[2017-08-15 08:00] VITALS: BP 165/93; PULSE 77; RESP 18; TEMP 98.1; O2SAT 99
[2017-08-15] MEDS ORDERED: INSULIN DETEMIR 100 UNITS/ML VIAL SQ SCH (09:00)
[2017-08-15] MEDS: INSULIN ASPART SUPPLEMENTAL SCALE SQ SCH (09:20)
[2017-08-15] MEDS: LISINOPRIL 10 MG TAB PO SCH (09:21)
[2017-08-15] MEDS: POTASSIUM CHLORIDE 10 MEQ CAP PO SCH (09:21)
[2017-08-15] MEDS: VITAMIN B CMPLX/VITC/FOLIC AC CAP PO SCH (09:21)
[2017-08-15] MEDS: CHOLECALCIFEROL (VIT D3) 1000 UNIT TAB PO SCH (09:21)
[2017-08-15] MEDS: CARVEDILOL 6.25 MG TAB PO SCH (09:21)
[2017-08-15] MEDS ORDERED: DEXTROSE 50% IN WATER 50 ML VIAL(D50) IV PUSH PRN (11:00)
[2017-08-15] MEDS ORDERED: GLUCAGON 1 MG/ML VIAL OTHER PRN (11:00)
--- NOTE | 2017-08-15 11:02 | HHI.NPPN ---
Subjective Renal Failure: Chronic, End Stage Renal Disease Interval History PD went well. Wanting to be discharged. Blood sugar stabilized. (Marifer Cuadra) Review of Systems General Constitutional: Fatigue (Marifer Cuadra) Gastrointestinal Gastrointestinal: Nausea & Vomiting (Marifer Cuadra) Objective Data Data 08/15/17 08/16/17 19:00 07:00 Output Total 929 ml Balance -929 ml Peritoneal Fluid 929 ml Vital Signs Date Time Temp Pulse Resp B/P (MAP) Pulse Ox O2 Delivery O2 Flow Rate FiO2 08/15/17 08:00 98.1 77 18 165/93 (117) 99 08/15/17 04:38 97.6 79 20 164/98 (120) 96 08/15/17 01:31 99.2 82 20 129/79 (96) 98 08/14/17 20:16 99.0 82 20 162/97 (118) 99 08/14/17 16:15 98.6 81 20 131/81 (98) 99 08/14/17 12:36 98.4 87 20 131/79 (96) 95 (Marifer Cuadra) -: 08/13/17 1225 08/14/17 0515 Tubes & Lines: Tenckhoff Catheter (Marifer Cuadra) Physical Exam General Appearance: Well Developed, No Acute Distress, Comfortable, Malnourished (Marifer Cuadra) Eyes Eye Exam: Pupils Equal, Pupils Reactive (Marifer Cuadra) Throat Throat Exam: Oral Mucosa [place] & Moist (Marifer Cuadra) Neck Neck Exam: Neck Supple (Marifer Cuadra) Pulmonary Resp Exam: Clear Bilaterally, Breath Sounds Equal (Marifer Cuadra) Cardiology CV Exam: Regular, Normal Sinus Rhythm (Marifer Cuadra) Gastrointestinal/Abdomen GI Exam: Soft, Non-Tender, Bowel Sounds Present (Marifer Cuadra) Musculoskeletal MS Exam: Joints Intact, Normal Tone (Marifer Cuadra) Integumentary Skin Exam: Clear, Warm, Dry, Intact (Marifer Cuadra) Extremeties Extremities Exam: No Edema, Pedal Pulses Palpable (Marifer Cuadra) Neurologic Neuro Exam: Alert, Awake, Oriented, Speech Clear, Moving All Extremities (Marifer Cuadra) Assessment/Plan Discussed Condition With: Patient Assessment Summary: Diabetes Mellitus, End Stage Renal Disease Problem List: (1) End stage renal disease ICD Codes: N18.6 - End stage renal disease Plan: PD went well. He can continue current prescription at home after discharge, follow with human relations teacher locally Stable from renal perspective No need for IVF. Epogen given on 08/12/17. (2) Hyponatremia ICD Codes: E87.1 - Hypo-osmolality and hyponatremia Plan: patient has pseudohyponatremia, but will continue to monitor. Hyponatremia not uncommon in PD patients. (3) Hypokalemia ICD Codes: E87.6 - Hypokalemia Plan: Improved (4) Diabetes mellitus ICD Codes: E11.9 - Type 2 diabetes mellitus without complications Plan: variable glucose readings Pending endocrinology evaluation wanting to be discharged to follow at [place] today will need Rx for insulin at discharge. Plan patient can be discharged from renal standpoint. (Marifer Cuadra) Plan patient was seen and examined. Agree with above assessment and plan. (Yovanny Padgett MD) Marifer Cuadra Aug 15, 2017 11:02 Yovanny Padgett MD Aug 16, 2017 07:55
[2017-08-15 12:00] VITALS: BP 143/83; PULSE 80; RESP 18; TEMP 98; O2SAT 99
[2017-08-15] MEDS ORDERED: INSULIN ASPART SUPPLEMENTAL SCALE SQ SCH (12:00)
--- NOTE | 2017-08-15 12:08 | HHI.PR ---
Subjective Remarks in no acute distress. overall doing fine. blood sugar trend noted. Objective Vitals Vital Signs Date Time Temp Pulse Resp B/P (MAP) Pulse Ox O2 Delivery O2 Flow Rate FiO2 08/15/17 08:00 98.1 77 18 165/93 (117) 99 08/15/17 04:38 97.6 79 20 164/98 (120) 96 08/15/17 01:31 99.2 82 20 129/79 (96) 98 08/14/17 20:16 99.0 82 20 162/97 (118) 99 08/14/17 16:15 98.6 81 20 131/81 (98) 99 08/14/17 12:36 98.4 87 20 131/79 (96) 95 I/O 08/14/17 08/14/17 08/14/17 08/15/17 08/15/17 08/15/17 07:00 15:00 23:00 07:00 15:00 23:00 Intake Total 720 ml 120 ml Output Total 1232 ml 929 ml Balance -1232 ml 720 ml 120 ml -929 ml Intake Oral 720 ml 120 ml Peritoneal Fluid 1232 ml 929 ml # Voids 2 3 # Bowel Movements 1 Result Diagram: 08/13/17 1225 08/14/17 0515 Imaging Last Impressions Chest X-Ray 08/11/17 0000 Signed Impressions: CONCLUSION: 1. Bibasilar atelectasis and/or infiltrates. 2. Elevation of the left hemidiaphragm. Objective Remarks GENERAL: This is a well-nourished, well-developed patient, in no apparent distress. CARDIOVASCULAR: Regular rate and regular rhythm without murmurs, gallops, or rubs. RESPIRATORY: Clear to auscultation. Breath sounds equal bilaterally. No wheezes , rales, or rhonchi. GASTROINTESTINAL: Abdomen soft, non-tender, nondistended. Normal, active bowel sounds MUSCULOSKELETAL: Extremities without clubbing, cyanosis, or edema. NEURO: Alert & Oriented x4 to person, place, time, situation. Moves all ext x4 Medications and IVs Inpatient Medications Amlodipine Besylate (Norvasc) 10 mg DAILY PO Last administered on 08/15/17at 09: 21; Start 08/11/17 at 09:00 Carvedilol (Coreg) 6.25 mg BID PO Last administered on 08/15/17at 09:21; Start at 21:00 Chlorhexidine Gluconate (Chlorhexidine 2% Cloth) 3 pack UNSCH PRN TOP HYGIENIC CARE; Start 08/10/17 at 17:15 Cholecalciferol (Vitamin D3) 1,000 units DAILY PO Last administered on at 09:21; Start 08/11/17 at 09:00 Dextrose (D50w (Vial) Inj) 50 ml UNSCH PRN IV PUSH HYPOGLYCEMIA-SEE COMMENTS; Start 08/15/17 at 11:00 Dextrose/Sodium Chloride 1,000 ml @ 200 mls/hr Q5H IV Last administered on 08/11at 06:31; Start 08/10/17 at 17:05; Stop 08/11/17 at 07:53; Status DC Epoetin David (Epogen Inj) 20,000 units ONCE ONCE SQ Last administered on at 15:38; Start 08/12/17 at 12:00; Stop 08/12/17 at 12:01; Status DC Glucagon (Glucagon Inj) 1 mg UNSCH PRN OTHER HYPOGLYCEMIA-SEE COMMENTS; Start 08/15/17 at 11:00 Heparin Sodium (Porcine) (Heparin Inj) 1,000 units WITH DIALYSIS PRN XX SEE LABEL COMMENTS; Start 08/11/17 at 10:45 Hydralazine HCl (Apresoline Inj) 10 mg Q2HR PRN IV PUSH SBP greater than 160mm Hg; Start 08/10/17 at 18:00 Insulin Aspart (NovoLOG SUPPLEMENTAL SCALE) 1 ACHS SLIDING SCALE SQ ; Start 08/15/17 at 12:00 Insulin Detemir (Levemir Inj) 8 units DAILY SQ Last administered on 08/15/17at 09 :27; Start 08/15/17 at 09:00 Insulin Human Regular 100 units/ Sodium Chloride 100 ml @ 8.25 mls/hr TITRATE PRN IV Blood Glucose Control Last administered on 08/11/17at 04:34; Start 08/10/17 at 17:45; Stop 08/11/17 at 11:00; Status DC Lisinopril (Prinivil) 10 mg BID PO Last administered on 08/15/17at 09:21; Start 08/10/17 at 21:00 Metoprolol Tartrate (Lopressor Inj) 5 mg Q5M PRN IV PUSH HR>100 Last administered on 08/11/17at 06:44; Start 08/11/17 at 04:45 Miscellaneous (Pill Splitter) 1 ea UNSCH PRN OTHER SEE LABEL COMMENTS; Start at 20:00 Miscellaneous Information [place] [place] 1 ONCE ONCE .XX Last administered on 08/11/17at 07:45; Start 08/11/17 at 07:45; Stop 08/11/17 at 07:53; Status DC Miscellaneous Information ([facility] [place] Insulin 2 hrs post Levemir) 1 ONCE ONCE .XX Last administered on 08/11/17at 07:45; Start 08/11/17 at 07:45; Stop 08/11/17 at 07:54; Status DC Miscellaneous Information ([facility] [place] Nursing Information) 1 Q361D XX Last administered on 08/10/17at 17:15; Start 08/10/17 at 17:15 Ondansetron HCl (Zofran Odt) 4 mg Q6H PRN PO NAUSEA OR VOMITING Last administered on 08/11/17at 13:03; Start 08/11/17 at 08:00 Pantoprazole Sodium (Protonix Inj) 40 mg Q24H IV PUSH Last administered on at 18:25; Start 08/10/17 at 19:00 Potassium Bicarb/ Potassium Chloride (K-Lyte Cl Eff) 50 meq ONCE ONCE PO Last administered on 08/11/17at 18:57; Start 08/11/17 at 18:45; Stop 08/11/17 at 18: 46; Status DC Potassium Chloride (KCl) 10 meq DAILY PO Last administered on 08/15/17at 09:21; Start 08/14/17 at 09:00 Promethazine HCl (Phenergan) 12.5 mg Q6H PRN PO nausea Last administered on 08/11at 04:33; Start 08/10/17 at 20:00 Sodium Bicarbonate (Sodium Bicarbonate 8.4% Inj) 50 meq UNSCH PRN IV PUSH SEE LABEL COMMENTS; Start 08/10/17 at 17:15; Stop 08/11/17 at 07:53; Status DC Sodium Chloride 1,000 ml @ 75 mls/hr [id number] IV ; Start 08/12/17 at 11:30; Stop 08/13/17 at 13:51; Status DC Sodium Chloride (NS Flush) 10 ml UNSCH PRN IV FLUSH SEE LABEL COMMENTS; Start 08/11/17 at 10:45 Sodium Phosphate 15 mmol/Sodium Chloride 105 ml @ 25 mls/hr UNSCH PRN IV SEE LABEL COMMENTS; Start 08/10/17 at 17:15; Stop 08/11/17 at 07:53; Status DC Vitamin B Complex/ Vit C/Folic Acid (Nephrocaps) 1 cap DAILY PO Last administered on 08/15/17at 09:21; Start 08/11/17 at 09:00 A/P Assessment and Plan DKA Type 1 diabetes Resolved continue levemir changed the sliding scale to ACHS Diabetic diet A1c 12.2. 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 Nausea Related to DKA Improving Continue Zofran Hypokalemia Replace as needed and monitor End-stage renal disease Continue peritoneal dialysis Follow renal function Nephrology following Hypertension Continue baseline treatment Follow blood pressures Adjust treatments as needed Discharge Planning dc home -likely later this evening if blood sugar stable. f/u; pcp,nephrology and endocrinology. see med list. d/w the patient. Vickie Kebede MD Aug 15, 2017 12:08
--- NOTE | 2017-08-15 12:11 | HHI.DS ---
Discharge Summary Admission Date Aug 10, 2017 at 16:42 Discharge Date: Aug 15, 2017 Admitting Diagnosis DKA, Hyperosmolar state (1) Diabetic keto-acidosis ICD Code: E13.10 - Other specified diabetes mellitus with ketoacidosis without coma Diagnosis: Principal Procedures none Brief History - From Admission 52-year-old male with a medical history significant for type 1 diabetes mellitus on insulin pump for about 20 years who developed nausea vomiting about 2 weeks back with extremely poor p.o. intake. He usually uses insulin pump about 50 units a day which he continued to use. He was brought to the ER at [facility] in the morning of 08/10. On evaluation in the ER he was noted to have glucose levels in the 1400 range. He is on peritoneal dialysis for end-stage renal disease for the last 2 years. Patient was initially admitted to [facility] however in view of no availability of peritoneal dialysis he was transferred to [facility] after being accepted by critical care medicine service. Patient had been started on insulin drip at [facility] and received 2 L normal saline bolus. Of note his sodium was 113 however this is probably pseudohyponatremia from extreme hyperglycemia is corrected sodium is 145. I evaluated the patient following his arrival. He was resting in bed comfortably not in any acute distress. He was on an insulin drip at 8 units an hour. History is obtained by reviewing records and discussion with patient as well as his family. He denies any chest pain. He does have chronic diarrhea. Denies any fevers chills or rash. He is legally blind. CBC/BMP: 08/13/17 1225 08/14/17 0515 Significant Findings Laboratory Tests Test 08/12/17 12:22 08/13/17 12:25 08/14/17 05:15 Potassium Level 3.4 MEQ/L (3.5-5.1) Red Blood Count 3.53 MIL/MM3 (4.50-5.90) Hemoglobin 10.7 GM/DL (13.0-17.0) Hematocrit 31.4 % (39.0-51.0) Neutrophils (%) (Auto) 73.0 % (16.0-70.0) Monocytes (%) (Auto) 9.4 % (0.0-8.0) Lymphocytes # (Auto) 0.9 TH/MM3 (1.0-4.8) Blood Urea Nitrogen 41 MG/DL (7-18) Creatinine 13.18 MG/DL (0.60-1.30) Albumin 2.1 GM/DL (3.4-5.0) Calcium Level 8.0 MG/DL (8.5-10.1) Sodium Level 135 MEQ/L (136-145) Estimat Glomerular Filtration Rate 4 ML/MIN (>89) Imaging Last Impressions Chest X-Ray 08/11/17 0000 Signed Impressions: CONCLUSION: 1. Bibasilar atelectasis and/or infiltrates. 2. Elevation of the left hemidiaphragm. PE at Discharge GENERAL: This is a well-nourished, well-developed patient, in no apparent distress. CARDIOVASCULAR: Regular rate and regular rhythm without murmurs, gallops, or rubs. RESPIRATORY: Clear to auscultation. Breath sounds equal bilaterally. No wheezes , rales, or rhonchi. GASTROINTESTINAL: Abdomen soft, non-tender, nondistended. Normal, active bowel sounds MUSCULOSKELETAL: Extremities without clubbing, cyanosis, or edema. NEURO: Alert & Oriented x4 to person, place, time, situation. Moves all ext x4 Hospital Course DKA Type 1 diabetes recurrent hypoglycemic episode this morning. Resolved continue levemir changed the sliding scale to ACHS Diabetic diet A1c 12.2. 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 Nausea Related to DKA Improving Continue Zofran Hypokalemia Replaced. End-stage renal disease Continue peritoneal dialysis Follow renal function Nephrology following Hypertension Continue baseline treatment Follow blood pressures Adjust treatments as needed Pt Condition on Discharge: Fair Discharge Disposition: Discharge Home Discharge Time: <= 30 minutes Discharge Instructions DIET: Follow Instructions for: Heart Healthy Diet, Diabetic Diet Activities you can perform: Regular-No Restrictions Vickie Kebede MD Aug 15, 2017 12:11
[2017-08-15] MEDS ORDERED: LEVEMIR SQ (12:19)
[2017-08-15] MEDS ORDERED: NOVOLOGP2 SQ (12:19)
== END 2017-08-15 17:12 | disposition home or self-care (01) | DRG 637 ==
LOC: HIME 16:42 → N05B 08-11 19:35
PROVIDERS: ADMIT Internal Medicine; ATTEND Internal Medicine
PROC: 3E1M39Z Irrigation of Peritoneal Cavity using Dialysate, Percutaneous Approach (ICD-10-PCS; principal; 2017-08-10)
DX: E10.10 Type 1 diabetes mellitus with ketoacidosis without coma (principal); N18.6 End stage renal disease; I12.0 Hypertensive chronic kidney disease with stage 5 chronic kidney disease or end stage renal disease; E10.22 Type 1 diabetes mellitus with diabetic chronic kidney disease; E87.1 Hypo-osmolality and hyponatremia; D63.1 Anemia in chronic kidney disease; E10.319 Type 1 diabetes mellitus with unspecified diabetic retinopathy without macular edema; E10.40 Type 1 diabetes mellitus with diabetic neuropathy, unspecified; E78.5 Hyperlipidemia, unspecified; E86.0 Dehydration; E87.6 Hypokalemia; H54.8 Legal blindness, as defined in USA; K52.9 Noninfective gastroenteritis and colitis, unspecified; R13.10 Dysphagia, unspecified; Z89.429 Acquired absence of other toe(s), unspecified side; Z79.4 Long term (current) use of insulin; Z96.41 Presence of insulin pump (external) (internal); Z99.2 Dependence on renal dialysis
CPT/HCPCS: 71045; 76937; 80048; 80053; 80069; 82947; 82948; 83036; 83735; 84100; 84132; 85025; 90935; C9113; J0360; J1815; J1817; J3480; J7030; J7042; Q0169; Q4081